=== PATIENT | female | born 2000 | race African-American/Black ===

== ENCOUNTER 2019-04-19 10:30 | Outpatient (CLI) | payer MEDICAID ==
--- NOTE | 2019-04-19 11:24 | ULT ---
PELVIC ULTRASOUND: INDICATIONS: Pelvic pain. TECHNIQUE: Transabdominal ultrasound of the pelvis performed. FINDINGS: The uterus has a normal sonographic appearance. The endometrial stripe is normal, measured at 1 cm. Both ovaries are identified and appear unremarkable, with normal appearing follicles. Color Doppler with spectral analysis demonstrates blood flow to both ovaries. No free fluid identified. IMPRESSION: Unremarkable pelvic ultrasound. POS: [facility]
== END 2019-04-19 10:31 | disposition home or self-care (01) ==
LOC: SCSULT 10:30
PROVIDERS: ATTEND Family Medicine
DX: R10.2 Pelvic and perineal pain (principal)
CPT/HCPCS: 76856; 93976